=== PATIENT | female | born 1940 | race Hispanic/Latino ===

== ENCOUNTER 2023-12-19 17:14 | Emergency (ER) | payer MEDICARE ==
[~2023-12-19] VITALS: Ht 149.9 cm; Wt 63.5 kg
[~2023-12-19 17:14] MED LIST: LEVO112T7 PO; LISI20TA24 PO; SIMV10TA97 PO; SITA1TAB2 PO
[2023-12-19 19:41] VITALS: BP 138/72; PULSE 62; RESP 17; TEMP 98.2; O2SAT 99
== END 2023-12-19 19:49 | disposition home or self-care (01) ==
LOC: EDH 17:14
DX: S16.1XXA Strain of muscle, fascia and tendon at neck level, initial encounter (principal); S80.02XA Contusion of left knee, initial encounter; M79.671 Pain in right foot; M25.511 Pain in right shoulder; E11.9 Type 2 diabetes mellitus without complications; Z79.84 Long term (current) use of oral hypoglycemic drugs; Z79.899 Other long term (current) drug therapy; M19.90 Unspecified osteoarthritis, unspecified site; Z90.710 Acquired absence of both cervix and uterus; Z90.49 Acquired absence of other specified parts of digestive tract; W01.0XXA Fall on same level from slipping, tripping and stumbling without subsequent striking against object, initial encounter; Y93.01 Activity, walking, marching and hiking; Y92.89 Other specified places as the place of occurrence of the external cause; Y99.8 Other external cause status
CPT/HCPCS: 29515; 70450; 72125; 73030; 73562; 73630